=== PATIENT | male | born 1960 | race Caucasian/White ===

== ENCOUNTER 2019-01-19 19:27 | Emergency (ER) | payer OTHER ==
[2019-01-19 19:54] VITALS: BP 145/68
--- NOTE | 2019-01-19 20:09 | UC ---
Lower Extremity/Ankle HPI - HPI Summary HPI Summary: per lighting specialist: "Injury to medial aspect of pt's lower left leg yesterday when hit by a tree limb. LLE is swollen and painful." -here w/ his GF. had trauma to same leg in 09/2015 w/ severe injury and resulted in a blood clot. -denies cp/sob. -here w/ GF -was hoping it would go down, hates going to Drs but hurts a lot and very swollen -denies numbing/tingling - History of Current Complaint Chief Complaint: UCLowerExtremity Stated Complaint: LEFT LEG INJURY/SWELLING Time Seen by Provider: 01/19/19 20:00 Pain Intensity: 8 - Allergies/Home Medications Allergies/Adverse Reactions: Allergies Allergy/AdvReac Type Severity Reaction Status Date / Time No Known Allergies Allergy Verified 01/19/19 19:48 Home Medications: Home Medications NK [No Home Medications Reported] 01/19/19 [History Confirmed 01/19/19] PMH/Surg Hx/FS Hx/Imm Hx Previously Healthy: Yes - Surgical History Surgical History: None - Family History Known Family History: Negative: Blood Disorder - no Fhx DVTs - Social History Alcohol Use: Daily Substance Use Type: None Smoking Status (MU): Never Smoked Tobacco Type: Smokeless Tobacco Review of Systems All Other Systems Reviewed And Are Negative: Yes Constitutional: Positive: Negative Skin: Positive: Negative Eyes: Positive: Negative ENT: Positive: Negative Respiratory: Positive: Negative. Negative: Shortness Of Breath Cardiovascular: Positive: Negative. Negative: Palpitations, Chest Pain Gastrointestinal: Positive: Negative Genitourinary: Positive: Negative Motor: Positive: Other Neurovascular: Positive: Negative Musculoskeletal: Positive: Negative Neurological: Positive: Negative Psychological: Positive: Negative Is Patient Immunocompromised?: No Physical Exam Appearance: Well-Appearing, No Pain Distress, Well-Nourished - very pleasant Vital Signs: Initial Vital Signs Temp 99 F 01/19/19 19:48 Pulse 86 01/19/19 19:48 Resp 16 01/19/19 19:48 BP 145/68 01/19/19 19:48 Pulse Ox 100 01/19/19 19:48 Vital Signs Reviewed: Yes Eye Exam: Normal ENT Exam: Normal Respiratory Exam: Normal Respiratory: Positive: Chest non-tender, Lungs clear, Normal breath sounds, No respiratory distress, No accessory muscle use Cardiovascular Exam: Normal Cardiovascular: Positive: RRR, No Murmur Abdomen Description: Positive: Nontender, Soft Musculoskeletal: Positive: Other: - left medial calf with non-pitting edema. very tense and tender to palpation along nearly entire length of lower leg. bluish discoloration w/ some warmth to touch. sens intact. FROM foot. CR brisk. Neurological Exam: Normal Psychological Exam: Normal Lower Extremity Course/Dx - Course Course Of Treatment: left leg with mod-severe tense/tender medial calg swelling entire length of LLE s/p severe trauma w/ a tree limb > 24 hrs ago. has had DVT in that leg post-op chainsaw injry to left ankle in 2016. he was AC for 2 wks w/o rpt US they report. recommend ER tonight to r/o DVT and al;so for frx. he has been able to weight bear but not initially after injury. they are agreeable w/ this plan. has been walking on it today - Differential Dx/Diagnosis Differential Diagnosis/HQI/PQRI: Contusion, Fracture (Closed), Phlebitis, Sprain , Strain Provider Diagnosis: Pain of left lower leg Discharge ED - Sign-Out/Discharge Documenting (check all that apply): Patient Departure All imaging exams completed and their final reports reviewed: No Studies - Discharge Plan Condition: Stable Disposition: HOME Referrals: No Primary Care Phys,NOPCP [Primary Care Provider] - [facility] [[facility]] Additional Instructions: Please go directly to the ER for further evaluation of leg swelling. My concern is a recurrent blood clot and recommend and US tonight. - Billing Disposition and Condition Condition: STABLE Disposition: Home
== END 2019-01-19 20:16 | disposition home or self-care (01) ==
LOC: UCCORT 19:27
DX: M79.662 Pain in left lower leg (principal); M79.89 Other specified soft tissue disorders; Z86.718 Personal history of other venous thrombosis and embolism
CPT/HCPCS: 99202; G0463